=== PATIENT | male | born 1990 | race Caucasian/White ===

== ENCOUNTER 2024-07-15 21:59 | Emergency (ER) | payer OTHER ==
[~2024-07-15] VITALS: Ht 175.3 cm; Wt 106.6 kg
[2024-07-15 22:34] VITALS: TEMP 98
[2024-07-15] MEDS: ONDANSETRON HCL INJ 2MG/ML 2ML 2 MG/ML VIAL IV STA (22:54)
[2024-07-15] MEDS: SODIUM CHLORIDE 0.9% 1000ML 1,000 ML IV STA (22:54)
[2024-07-15 23:00] LABS: BASOPHILS # (AUTO) 0.1 (0.0-0.1); BASOPHILS % 0.4 % (0.0-1.0); EOSINOPHILS # (AUTO) 0.4 (0.0-0.4); EOSINOPHILS % 3.1 % (0.0-6.0); HEMATOCRIT 41.8 % (38.2-49.6); HEMOGLOBIN 14.5 g/dL (14.0-18.0); LYMPHOCYTES # (AUTO) 4.4 (1.0-3.2); LYMPHOCYTES % 37.2 % (18.0-39.1); MEAN CORPUSCULAR HEMOGLOBIN 30.9 pg (28-32); MEAN CORPUSCULAR HGB CONC 34.7 g/dL (31-35); MEAN CORPUSCULAR VOLUME 88.9 fL (81-99); MONOCYTES # (AUTO) 0.7 (0.2-0.8); MONOCYTES % 6.2 % (4.4-11.3); NEUTROPHILS # (AUTO) 6.2 (2.1-6.9); NEUTROPHILS % 52.6 % (38.7-80.0); PLATELET COUNT 294 x10e3/uL (140-360); RED CELL DISTRIBUTION WIDTH 12.5 % (11.7-14.4); WHITE BLOOD COUNT 11.81 x10e3/uL (4.8-10.8)
[2024-07-15] MEDS: KETOROLAC TROMETHAMINE 30 MG/ML VIAL IV STA (23:14)
[2024-07-15 23:21] LABS: ALANINE AMINOTRANSFERASE 203 IU/L (0-55); ALBUMIN 4.2 g/dL (3.5-5.0); ALBUMIN/GLOBULIN RATIO 1.2 (0.8-2.0); ALKALINE PHOSPHATASE 110 IU/L (40-150); ANION GAP 14.8 mmol/L (8-16); BILIRUBIN,TOTAL 0.7 mg/dL (0.2-1.2); BLOOD UREA NITROGEN 14 mg/dL (7-26); BUN/CREATININE RATIO 11 (6-25); CALCIUM 9.5 mg/dL (8.4-10.2); CARBON DIOXIDE 25 mmol/L (22-29); CHLORIDE 102 mmol/L (98-107); CREATINE KINASE 320 IU/L (30-200); CREATININE, SERUM 1.26 mg/dL (0.72-1.25); EST GLOMERULAR FILTRATION RATE 77 ML/MIN (>=60); GLUCOSE 110 mg/dL (74-118); LIPASE 38 U/L (8-78); POTASSIUM 3.8 mmol/L (3.5-5.1); SODIUM 138 mmol/L (136-145); TOTAL PROTEIN 7.7 g/dL (6.5-8.1)
[2024-07-15 23:28] LABS: TROPONIN I < 0.001 ng/mL (0-0.300)
[2024-07-15 23:39] LABS: AMPHETAMINES SCREEN,URINE NEGATIVE (NEGATIVE); BENZODIAZEPINES SCREEN,URINE NEGATIVE (NEGATIVE); BILIRUBIN,URINE NEGATIVE (NEGATIVE); CANNABINOIDS SCREEN,URINE NEGATIVE (NEGATIVE); CLARITY,URINE SL CLOUDY (CLEAR); COCAINE SCREEN,URINE NEGATIVE (NEGATIVE); COLOR,URINE YELLOW (YELLOW); GLUCOSE, URINE NEGATIVE (NEGATIVE); KETONES,URINE NEGATIVE (NEGATIVE); LEUKOCYTE ESTERASE ,URINE NEGATIVE (NEGATIVE); METHADONE SCREEN, URINE NEGATIVE (NEGATIVE); NITRITE,URINE NEGATIVE (NEGATIVE); OPIATES SCREEN,URINE NEGATIVE (NEGATIVE); PH,URINE 8 (5 - 7); PHENCYCLIDINE SCREEN,URINE NEGATIVE (NEGATIVE); PROTEIN,URINE DIPSTICK TRACE (NEGATIVE); URINE UROBILINOGEN 1 mg/dL (0.2 - 1)
[2024-07-16 00:31] LABS: AMORPHOUS SEDIMENT,URINE MANY; BACTERIA,URINE MANY /HPF; EPITHELIAL CELLS,URINE FEW /LPF; RBC,URINE 0-5 /HPF (0-5); WBC,URINE (MAN) 0-5 /HPF (0-5)
[2024-07-16] MEDS ORDERED: KETOROLAC TROME10 MG PO (02:27)
[2024-07-16 02:40] VITALS: PULSE 76; RESP 18; O2SAT 97
[2024-07-16] MEDS ORDERED: IOPAMIDOL 370 MG/ML 100 ML INFUS..BTL INJ ONE (05:34)
== END 2024-07-16 02:45 | disposition home or self-care (01) ==
LOC: ER 22:05
DX: M54.50 Low back pain, unspecified (principal); G89.29 Other chronic pain; W07.XXXA Fall from chair, initial encounter; Y92.238 Other place in hospital as the place of occurrence of the external cause
CPT/HCPCS: 36415; 70450; 74177; 80053; 80307; 80320; 81001; 82550; 82948; 83690; 84484; 85025; 93005; 99284; J1885; J2405; J7030; Q9967